=== PATIENT | female | born 1985 | race American Indian/Alaskan Native ===

== ENCOUNTER 2017-07-22 05:37 | Inpatient (IN) | payer OTHER ==
[2017-07-22] MEDS ORDERED: Oxytocin 30 UNITS in Sodium Chloride 0.9% 500 ML IV SCH (06:30)
[2017-07-22 06:40] VITALS: BMI 29.1
--- NOTE | 2017-07-22 06:55 | OBHP ---
Datetime: 07/22/2017 06:52 IP Adm Impression: Term, intrauterine ; Active labor IP Admit Plan: Admit to unit Admit Comment, IP Provider: The patient is at 38 weeks 6 days presents to labor and delivery c omplaining of spontaneous rupture membranes clear fluid patient reports good movement no vagina l bleeding and uterine contractions. Past medical history none Past surgical history none No known drug allergies Social history denies alcohol tobacco use care by Dr. Cox Intrauterine at 38 weeks 6 days Spontaneous rupture of membranes Admit, IV fluid hydration, routine labs Adequate pelvis vertex presentation estimated weight 7-1/2 pounds Pelvic Type - PN: Adequate Extremities - PN: Normal Abdomen - PN: Normal Back - PN: Normal Breast - PN: Not Done Lungs - PN: Normal Heart - PN: Normal Thyroid - PN: Normal Neurologic - PN: Normal HEENT - PN: Normal General - PN: Normal Weight - Estimated: 7 Presentation-Admit: Vertex FHR - Baseline A Provider: 145 Gestation - Est Wks by US: 38.0 Pool Provider: Positive EGA AdmitDate IP: 38.6 Vital Signs Provider: Reviewed IP Chief Complaint: Uterine contractions; Suspected ruptured membranes NICHD Variability Prov Fetus A: Moderate 6-25bpm NICHD Accel Fetus A IP Provider: 15X15 FHR Category Provider Fetus A: Category I Dilatation, Provider: 3 Effacement, Provider: 75 Station, Provider: -2 Genitourinary Exam: Normal DTRs - PN: Normal
[2017-07-22] MEDS: Lactated Ringer's 1,000 ML IV SCH ×4 (07:26→20:22)
[2017-07-22] MEDS ORDERED: Nalbuphine 20 mg/ml Inj (1 ml) IVP PRN (07:28)
[2017-07-22 07:46] LABS: BASO # 0.1 K/uL (0.0-0.2); BASO % 0.6 % (0.0-2.0); EOS # 0.2 K/uL (0.0-0.7); EOS % 1.7 % (0.0-4.0); LYMPH # 1.6 K/uL (1.0-4.3); LYMPH % 17.4 % (20.0-40.0); MEAN CELL VOLUME 86.7 fl (81.0-99.0); MEAN CORPUSCULAR HEMOGLOBIN 30.2 pg (27.0-31.0); MEAN CORPUSCULAR HGB CONC 34.9 g/dL (33.0-37.0); MEAN PLATELET VOLUME 8.9 fl (7.2-11.7); MONO # 0.7 K/uL (0.0-0.8); MONO % 7.7 % (0.0-10.0); NEUT # 6.8 K/uL (1.8-7.0); NEUT % 72.6 % (50.0-75.0); RED CELL DISTRIBUTION WIDTH 13.5 % (11.5-14.5); WHITE BLOOD COUNT 9.3 K/uL (4.8-10.8)
--- NOTE | 2017-07-22 09:41 | OBPN ---
Datetime: 07/22/2017 09:36 IP Progress Impression: Reassuring heart rate IP Procedures: Sterile Vag Exam IP Progress Plan: Augmentation FHR - Baseline A Provider: 120s IP Progress Note Comment: Patient with only occasional contraction. Plan for Pitocin augmentation. B oth maternal and well-being reassuring at this time. NICHD Accel Fetus A IP Provider: 15X15 FHR Category Provider Fetus A: Category I NICHD Variability Prov Fetus A: Moderate 6-25bpm Dilatation, Provider: 3-4 Effacement, Provider: 25 Station, Provider: -3 NICHD Decel Fetus A IP Provider: None Datetime: 07/22/2017 06:52 Pool Provider: Positive Gestation - Est Wks by US: 38.0 Weight - Estimated: 7 Presentation-Admit: Vertex Vital Signs Provider: Reviewed
[2017-07-22] MEDS ORDERED: Oxytocin 30 UNITS in Sodium Chloride 0.9% 500 ML IV ONE ×2 (09:56→10:15)
[2017-07-22] MEDS ORDERED: Lidocaine 2% PF (10 ml) Amp ONE (10:10)
[2017-07-22] MEDS ORDERED: Fentanyl/Bupivacaine HCl 250 ML EPI ONE (10:11)
[2017-07-22] MEDS ORDERED: ceFAZolin IV 2 gm in Dextrose 2 GM/50 ML BAG IVPB ONE ×2 (16:59→17:20)
[2017-07-22] MEDS ORDERED: Morphine 1 mg/ml preservative-free Inj(Duramorph) ONE (17:33)
[2017-07-22] MEDS ORDERED: Lidocaine 2% MPF (5 ml) Inj ONE (17:35)
[2017-07-22] MEDS ORDERED: Atropine 0.4 mg/ml Inj (1 mL) ONE (17:42)
[2017-07-22] MEDS ORDERED: Midazolam 2 MG/2 ML VIAL ONE (18:03)
[2017-07-22] MEDS ORDERED: DiphenhydrAMINE 50 mg/ml Inj IVP PRN (18:14)
[2017-07-22] MEDS ORDERED: Morphine 1 mg/ml preservative-free Inj(Duramorph) EPI ONE (18:14)
[2017-07-22] MEDS ORDERED: Naloxone 0.4 mg/ml Inj (Adult) IVP PRN (18:14)
[2017-07-23] MEDS: Lactated Ringer's 1,000 ML IV SCH (06:03)
[2017-07-23 06:12] LABS: BASO % 0.3 % (0.0-2.0); EOS # 0.1 K/uL (0.0-0.7); EOS % 0.7 % (0.0-4.0); HEMATOCRIT 29.9 % (34.0-47.0); LYMPH # 1.5 K/uL (1.0-4.3); LYMPH % 9.3 % (20.0-40.0); MEAN CELL VOLUME 87.7 fl (81.0-99.0); MEAN CORPUSCULAR HEMOGLOBIN 29.4 pg (27.0-31.0); MEAN CORPUSCULAR HGB CONC 33.5 g/dL (33.0-37.0); MEAN PLATELET VOLUME 8.6 fl (7.2-11.7); MONO # 0.8 K/uL (0.0-0.8); MONO % 5.2 % (0.0-10.0); NEUT # 13.7 K/uL (1.8-7.0); NEUT % 84.5 % (50.0-75.0); NRBC % 0.1 % (0.0-0.0); PLATELET COUNT 226 K/uL (130-400); RED CELL DISTRIBUTION WIDTH 13.5 % (11.5-14.5); WHITE BLOOD COUNT 16.2 K/uL (4.8-10.8)
--- NOTE | 2017-07-23 08:56 | OBDS ---
DELIVERY PERSONNEL Delivery Doctor: Cindy Sol MD Trial Paralegal: Kamilla Cooley RN Anesthesiologist: Alberta Boswell MD MATERNAL INFORMATION Delivery Anesthesia: Epidural Medications in Delivery: Pitocin 30u/500mL of NS Placenta Cultured: No Maternal Complications: None Provider Comments: Primary low flap transverse section via Pfannenstiel incision. Patient d elivered viable infant male with Apgars of 9 and 9 at one and 5 minutes respectively. Nuchal cord 2 reduced. Cord blood collected. Cord gases collected. Placenta delivered manually. Estimated blood loss 800 mL Fluids 1500 mL lactated Ringer's Urine output 200 mL of clear urine No complications. LABOR SUMMARY EDC: 07/30/2017 00:00 No. Babies in Womb: 1 Attempted: No Labor Anesthesia: Epidural LABOR INFORMATION Reason for Induction: Not Applicable Onset of Labor: 07/22/2017 02:00 Oxytocin: Augmentation Group B Beta Strep: Negative Antibiotics # of Doses: 1 Antibiotics Time of Last Dose: Ancef 2gm Steroids Given: None Reason Steroids Not Administered: Not Applicable MEMBRANES Membranes Rupture Method: Spontaneous Rupture of Membranes: 07/22/2017 02:00 Length of Rupture (hrs): 15.73 Amniotic Fluid Color: Clear Amniotic Fluid Amount: Small Amniotic Fluid Odor: Normal STAGES OF LABOR Stage 3 hrs: 0 Stage 3 min: 1 Total Time in Labor hrs: 15 Total Time in Labor min: 45 CSECTION DELIVERY Primary Indication: Secondary Arrest of Dilatation Secondary Indication: Nonreassuring Status CSection Urgency: Non Elective CSection Incidence: Primary Labor: Labor Elective: Nonelective CSection Incision: Classical BABY A INFORMATION Delivery Date/Time: 07/22/2017 17:44 Method of Delivery: Born in Route : No : N/A Forceps: N/A Vacuum Extraction: N/A Shoulder Dystocia : No SHOULDER DYSTOCIA BABY A Delivery Date/Time: 07/22/2017 17:44 PRESENTATION/POSITION BABY A Presentation: Cephalic Cephalic Presentation: Vertex Breech Presentation: N/A PLACENTA INFORMATION BABY A Placenta Delivery Time : 07/22/2017 17:45 Placenta Method of Delivery: Manual Removal Placenta Status: Delivered SCORES BABY A Heart Rate 1 min: >100 bpm Resp Effort 1 min: Good Cry Reflex Irritability 1 min: Cough or Sneeze or Pulls Away Muscle Tone 1 min: Active Motion Color 1 min: Body [place], Extremities Blue SCORE 1 MIN: 9 Heart Rate 5 min: >100 bpm Resp Effort 5 min: Good Cry Reflex Irritability 5 min: Cough or Sneeze or Pulls Away Muscle Tone 5 min: Active Motion Color 5 min: Body [place], Extremities Blue SCORE 5 MIN: 9 INFANT INFORMATION BABY A Gestational Age at Delivery: 38.6 Gestational Status: Term Outcome : Liveborn Infant Condition : Stable Infant Sex: Male WEIGHT/LENGTH BABY A Birthweight (gms): 3140 Weight (lb): 6 Weight (oz): 15 CORD INFORMATION BABY A No. Cord Vessels: 3 Nuchal Cord : N/A Cord Blood Taken: Yes Suction: Mouth
--- NOTE | 2017-07-23 08:59 | OBDS ---
DELIVERY PERSONNEL Delivery Doctor: Cindy Sol MD Human Relations Teacher: Kamilla Cooley RN Anesthesiologist: Alberta Boswell MD MATERNAL INFORMATION Delivery Anesthesia: Epidural Medications in Delivery: Pitocin 30u/500mL of NS Placenta Cultured: No Maternal Complications: None Provider Comments: Primary low flap transverse section via Pfannenstiel incision. Patient d elivered viable infant male with Apgars of 9 and 9 at one and 5 minutes respectively. Nuchal cord 2 reduced. Cord blood collected. Cord gases collected. Placenta delivered manually. Estimated blood loss 800 mL Fluids 1500 mL lactated Ringer's Urine output 200 mL of clear urine No complications. LABOR SUMMARY EDC: 07/30/2017 00:00 No. Babies in Womb: 1 Attempted: No Labor Anesthesia: Epidural LABOR INFORMATION Reason for Induction: Not Applicable Onset of Labor: 07/22/2017 02:00 Oxytocin: Augmentation Group B Beta Strep: Negative Antibiotics # of Doses: 1 Antibiotics Time of Last Dose: Ancef 2gm Steroids Given: None Reason Steroids Not Administered: Not Applicable MEMBRANES Membranes Rupture Method: Spontaneous Membranes Rupture Method: Spontaneous Membranes Rupture Method: Spontaneous Membranes Rupture Method: Spontaneous Membranes Rupture Method: Spontaneous Membranes Rupture Method: Spontaneous Membranes Rupture Method: Spontaneous Membranes Rupture Method: Spontaneous Membranes Rupture Method: Spontaneous Membranes Rupture Method: Spontaneous Membranes Rupture Method: Spontaneous Membranes Rupture Method: Spontaneous Membranes Rupture Method: Spontaneous Membranes Rupture Method: Spontaneous Membranes Rupture Method: Spontaneous Membranes Rupture Method: Spontaneous Membranes Rupture Method: Spontaneous Membranes Rupture Method: Spontaneous Membranes Rupture Method: Spontaneous Membranes Rupture Method: Spontaneous Membranes Rupture Method: Spontaneous Membranes Rupture Method: Spontaneous Membranes Rupture Method: Spontaneous Membranes Rupture Method: Spontaneous Membranes Rupture Method: Spontaneous Membranes Rupture Method: Spontaneous Rupture of Membranes: 07/22/2017 02:00 Length of Rupture (hrs): 15.73 Amniotic Fluid Color: Clear Amniotic Fluid Color: Clear Amniotic Fluid Amount: Small Amniotic Fluid Amount: Moderate Amniotic Fluid Odor: Normal Amniotic Fluid Odor: Normal STAGES OF LABOR Stage 3 hrs: 0 Stage 3 min: 1 Total Time in Labor hrs: 15 Total Time in Labor min: 45 CSECTION DELIVERY Primary Indication: Secondary Arrest of Dilatation Secondary Indication: Nonreassuring Status CSection Urgency: Non Elective CSection Incidence: Primary Labor: Labor Elective: Nonelective CSection Incision: Classical BABY A INFORMATION Delivery Date/Time: 07/22/2017 17:44 Method of Delivery: Born in Route : No : N/A Forceps: N/A Vacuum Extraction: N/A Shoulder Dystocia : No SHOULDER DYSTOCIA BABY A Delivery Date/Time: 07/22/2017 17:44 PRESENTATION/POSITION BABY A Presentation: Cephalic Cephalic Presentation: Vertex Breech Presentation: N/A PLACENTA INFORMATION BABY A Placenta Delivery Time : 07/22/2017 17:45 Placenta Method of Delivery: Manual Removal Placenta Status: Delivered SCORES BABY A Heart Rate 1 min: >100 bpm Resp Effort 1 min: Good Cry Reflex Irritability 1 min: Cough or Sneeze or Pulls Away Muscle Tone 1 min: Active Motion Color 1 min: Body [place], Extremities Blue SCORE 1 MIN: 9 Heart Rate 5 min: >100 bpm Resp Effort 5 min: Good Cry Reflex Irritability 5 min: Cough or Sneeze or Pulls Away Muscle Tone 5 min: Active Motion Color 5 min: Body [place], Extremities Blue SCORE 5 MIN: 9 INFANT INFORMATION BABY A Gestational Age at Delivery: 38.6 Gestational Status: Term Infant Outcome : Liveborn Condition : Stable Infant Sex: Male WEIGHT/LENGTH BABY A Birthweight (gms): 3140 Infant Weight (lb): 6 Weight (oz): 15 CORD INFORMATION BABY A No. Cord Vessels: 3 Nuchal Cord : N/A Cord Blood Taken: Yes Suction: Mouth
[2017-07-23 09:52] LABS: LARGE PLATELETS PRESENT; NEUTROPHIL 82 % (42-75); TOTAL CELLS COUNTED 100
--- NOTE | 2017-07-23 11:45 | OBPPN ---
Datetime: 07/23/2017 11:41 PP Pain Prov: Within normal limits PP Nausea Prov: Denies PP Flatus Prov: Yes PP BM Prov: No PP Breasts Prov: Normal PP Heart Prov: Normal PP Lungs Prov: Normal PP Abdomen/Uterus Prov: Normal PP Lochia Prov: Normal PP Vulva/Perineum Prov: Normal PP CVA Tenderness Prov: Normal PP Extremities Prov: Normal PP Comments Phys Exam Prov: Bandage removed Incision clean, dry, intact No deep Tenderness bilaterally PP Impression Prov: Normal progression PP Plan Prov: Continue present management PP Progress Note Prov: Postoperative #1 status post primary [id number] recovering well Postop CBC Pain control Advanced to regular diet as tolerated Lux out, void check Out of bed, ambulating IP PP Procedures: None Vital Signs Provider PP: Reviewed
[2017-07-23] MEDS ORDERED: Oxycodone/Acetaminophen 5/325 mg Tab PO ONE (11:54)
--- NOTE | 2017-07-23 12:05 | OP ---
PROCEDURE DATE: 07/22/2017 PREOPERATIVE DIAGNOSES: Arrest of dilatation in active labor, nonreassuring heart tracing. POSTOPERATIVE DIAGNOSES: Arrest of dilatation in active labor, nonreassuring heart tracing. OPERATION PERFORMED: Primary low-flap transverse section via Pfannenstiel incision. SURGEON: Todd Sol MD. ADVERTISING INTERNSHIP: Miguel Waggoner MD. Dr. Waggoner was present from the beginning of the procedure to the end of procedure. Dr. Waggoner was integral in exposing the surgical field, controlling intraoperative bleeding, and manual delivery of the infant. TYPE OF ANESTHESIA: Epidural. ANESTHESIA ADMINISTERED BY: Dr. Boswell. OPERATIVE FINDINGS: Viable male with Apgars of 9 and 9 at 1 and 5 minutes respectively, normal uterus, normal tubes and ovaries bilaterally. FLUIDS: 1500 mL lactated Ringer's. ESTIMATED BLOOD LOSS: 800 mL. URINE OUTPUT: 300 mL of clear urine at the end of procedure. COMPLICATIONS: None. DESCRIPTION OF PROCEDURE: The patient was taken to the operating room where epidural anesthesia was found to be adequate. The patient was prepped and draped in normal sterile fashion in the dorsal supine position with a leftward tilt. A Pfannenstiel skin incision was made with a scalpel. This was carried down through to the underlying layer of fascia with scalpel. Midline defect was made in the fascial layer with scalpel. The fascial incision was then extended bilaterally sharply with curved Khalil scissors. The fascial layer was from the rectus muscles both bluntly and sharply with curved Khalil scissors. The rectus muscles were at the midline. The peritoneum was then identified, tented up with Andra clamps x2, entered sharply with Metzenbaum scissors. This peritoneal incision was then extended superiorly and inferiorly with good visualization of the urinary bladder. Bladder blade was inserted into the abdomen. The vesicouterine peritoneum was then identified, tented up with Andra clamps x2, entered sharply with Metzenbaum scissors. This peritoneal incision was then extended bilaterally sharply with Metzenbaum scissors. The bladder flap was created digitally. The Kanchan retractors were placed over the urinary bladder. The uterus was incised with a scalpel. The uterine incision was extended bilaterally bluntly. The infant's head was delivered atraumatically. Nose and mouth were suctioned with bulb suction. The remainder of the infant was delivered without complication. The cord was clamped and cut. The was handed off to waiting pediatricians. Cord gases were collected. Cord blood was collected. The placenta was removed manually. The uterus was cleared of all clots and debris. The uterine incision was repaired with 0-Vicryl in a running, locked fashion. Second layer of the same suture was used to imbricate the first and to obtain excellent hemostasis. Reinspection of the uterine incision proved excellent hemostasis. The abdomen and pelvis were irrigated with copious amounts of warm normal saline. All instruments were removed from the patient. The peritoneal layer was closed with a running stitch of 2-0 chromic. The rectus muscles were reapproximated with a running stitch of 2-0 chromic. The fascial layer was closed with a running stitch of 0 Vicryl. Subcutaneous tissue was closed with a running stitch of 3-0 plain. The skin was closed with a subcutaneous stitch of 3-0 Vicryl. The patient tolerated the procedure well. All sponge, lap count, and needle counts were correct x2. There were no complications. The patient was given 2 g of Ancef just prior to the beginning of the procedure. The patient was taken to the recovery room in awake and stable condition. Todd Sol MD
[2017-07-23] MEDS: Oxycodone/Acetaminophen 5/325 mg Tab PO PRN ×2 (14:37→18:29)
[2017-07-23] MEDS: Simethicone 80 mg Chewtab PO SCH (18:30)
[2017-07-23] MEDS ORDERED: Chlorhexidine Gluconate 1 APPL/PKT TP ONE (21:21)
[2017-07-24] MEDS: Simethicone 80 mg Chewtab PO SCH ×2 (10:36→16:45)
--- NOTE | 2017-07-24 16:31 | OBPPN ---
Datetime: 07/24/2017 16:24 PP Pain Prov: Within normal limits PP Nausea Prov: Denies PP Flatus Prov: Yes PP BM Prov: No PP Breasts Prov: Normal PP Heart Prov: Normal PP Lungs Prov: Normal PP Abdomen/Uterus Prov: Normal PP Lochia Prov: Normal PP Vulva/Perineum Prov: Normal PP CVA Tenderness Prov: Normal PP Extremities Prov: Normal PP C/S Incision Prov: Normal PP Impression Prov: Normal progression PP Plan Prov: Continue present management PP Progress Note Prov: POD 2 H/H 07/11 A; S/P [id number] day 2/Anemia asymptomatic PLAN: cont postop care anticiapte discharge in AM Vital Signs Provider PP: Reviewed; Within Normal Limits
--- NOTE | 2017-07-25 07:41 | OBPPN ---
Datetime: 07/25/2017 07:39 PP Pain Prov: Within normal limits PP Nausea Prov: Denies PP Flatus Prov: Yes PP BM Prov: Yes PP Breasts Prov: Normal PP Heart Prov: Normal PP Lungs Prov: Normal PP Abdomen/Uterus Prov: Normal PP Lochia Prov: Normal PP Vulva/Perineum Prov: Normal PP CVA Tenderness Prov: Normal PP Extremities Prov: Normal PP C/S Incision Prov: Normal PP Impression Prov: Normal progression PP Plan Prov: Discharge PP Progress Note Prov: A; S/P C-sectoin day 3 PLAN: discharge home and follow up in 1-2w Vital Signs Provider PP: Within Normal Limits
--- NOTE | 2017-07-25 07:41 | OBDCSUM ---
Datetime: 07/25/2017 07:40 Discharged to, Provider: Home Follow up at, Provider: [facility] 1-2w Disch Instr Activity: Normal activity Disch Instr Diet: Regular Discharge Instructions, Provider: Routine instructions given Discharge Diagnosis, Provider: Term Delivered Follow up in weeks, Provider: 1-2w Disch Referrals: None Contraception discussed, Prov: Yes Disch Activity Restrictions: No lifting; No sexual activity; Nothing in vagina - [place], tampon s, douche
[2017-07-25] MEDS: Simethicone 80 mg Chewtab PO SCH (10:55)
[2017-07-25 17:54] VITALS: BP 122/83; PULSE 78; RESP 20; TEMP 98.3; O2SAT 99
== END 2017-07-25 13:30 | disposition home or self-care (01) | DRG 371 ==
LOC: H.EROB2 05:37 → H.L&D 06:23 → H.OB/GYN 21:45
PROVIDERS: ADMIT Obstetrics & Gynecology; ATTEND Obstetrics & Gynecology
PROC: 10D00Z1 Extraction of Products of Conception, Low, Open Approach (ICD-10-PCS; principal; 2017-07-22)
PROC: 4A1HXCZ Monitoring of Products of Conception, Cardiac Rate, External Approach (ICD-10-PCS; 2017-07-22)
DX: O62.1 Secondary uterine inertia (principal); O76 Abnormality in fetal heart rate and rhythm complicating labor and delivery; Z37.0 Single live birth; O69.81X0 Labor and delivery complicated by cord around neck, without compression, not applicable or unspecified; O62.0 Primary inadequate contractions; Z3A.38 38 weeks gestation of pregnancy

== ENCOUNTER 2017-08-11 08:21 | Emergency (ER) | payer OTHER ==
[2017-08-11 08:22] VITALS: BMI 29.1
[2017-08-11 08:40] VITALS: O2SAT 99
--- NOTE | 2017-08-11 09:58 | ED PDOC ---
HPI: General Adult Time Seen by Provider: 08/11/17 09:19 Chief Complaint (Nursing): Abnormal Skin Integrity Chief Complaint (Provider): Wound check History Per: Patient History/Exam Limitations: no limitations Additional History Per: Patient Additional Complaint(s): 32yo female, presents to ED today for a wound check. Patient states she had a c- section performed on 07/21/[address] Sol; states she had no complications in the early post-operation period. Patient states this morning, she noticed the right end of her wound was open and there was a pus like discharge with associated swelling. Patient denies any other abdominal pain, fever, vomiting, dysuria, vaginal bleeding. She denies any other medical complaints. Past Medical History Reviewed: Historical Data, Nursing Documentation, Vital Signs Vital Signs: Last Vital Signs Temp 97.6 F 08/11/17 08:33 Pulse 99 H 08/11/17 08:33 Resp 18 08/11/17 08:33 BP 138/88 08/11/17 08:33 Pulse Ox 99 08/11/17 10:01 - Medical History PMH: Bronchitis Denies: Depression, Diabetes, HTN, Chronic Kidney Disease - Surgical History Surgical History: - Family History Family History: States: No Known Family Hx - Living Arrangements Living Arrangements: With Family - Home Medications Home Medications: Ambulatory Orders Medication Instructions Recorded Ibuprofen [Motrin] 600 mg PO Q6H PRN #20 tab 07/25/17 Cephalexin [Keflex] 500 mg PO QID 7 Days capsule 08/11/17 - Allergies Allergies/Adverse Reactions: Allergies Allergy/AdvReac Type Severity Reaction Status Date / Time pineapple AdvReac SWELLING Verified 08/11/17 08:43 Review of Systems ROS Statement: Except As Marked, All Systems Reviewed And Found Negative Constitutional: Negative for: Fever, Chills Gastrointestinal: Positive for: Other (purulent discharge from right edge of c- section site). Negative for: Nausea, Vomiting Genitourinary Female: Negative for: Vaginal Bleeding Physical Exam - Reviewed Nursing Documentation Reviewed: Yes Vital Signs Reviewed: Yes - Physical Exam Appears: Positive for: Non-toxic, No Acute Distress Head Exam: Positive for: ATRAUMATIC, NORMAL INSPECTION, NORMOCEPHALIC Skin: Positive for: Normal Color Eye Exam: Positive for: Normal appearance Neck: Positive for: Supple Cardiovascular/Chest: Positive for: Regular Rate, Rhythm Respiratory: Positive for: Normal Breath Sounds. Negative for: Respiratory Distress Gastrointestinal/Abdominal: Positive for: Soft, Other (transverse wound noted, appears well healed but at the right end of wound, there is a 2cm araea of dehissence with purulent discharge. This area is tender to palpation as well.). Negative for: Tenderness Back: Positive for: Normal Inspection Extremity: Positive for: Normal ROM Neurologic/Psych: Positive for: Alert, Oriented - Laboratory Results Result Diagrams: 08/11/17 11:24 08/11/17 11:24 - ECG O2 Sat by Pulse Oximetry: 99 (RA) Pulse Ox Interpretation: Normal Medical Decision Making Medical Decision Making: Time: 924 Impression: Wound dehissence with superficial wound infection Plan: -- Patient states she called Dr. Sol this morning prior to arrival to the ED; call placed to Dr. Sol Time: [address] Sol who advised the patient to be started on Kefflex; he states he will see the patient in his office on 08/16. Patient informed of plan and is agreeable; stable for discharge home. Scribe Attestation: Documented by Karissa Novak acting as a scribe for Abhishek Castillo MD. Provider Attestation: All medical record entries made by the Scribe were at my direction and personally dictated by me. I have reviewed the chart and agree that the record accurately reflects my personal performance of the history, physical exam, medical decision making, and the department course for this patient. I have also personally directed, reviewed, and agree with the discharge instructions and disposition. Disposition - Clinical Impression Clinical Impression: Wound infection - Disposition Referrals: Todd Sol MD [Family Provider] - Disposition: Routine/Home Disposition Time: 12:11 Condition: GOOD Additional Instructions: Take your medications as instructed. Return for worsening pain. Follow up with Dr Sol on Wednesday. Prescriptions: Cephalexin [Keflex] 500 mg PO QID 7 Days capsule Instructions: Wound Infection (ED)
[2017-08-11 11:45] LABS: BASO # 0.1 K/uL (0.0-0.2); BASO % 0.9 % (0.0-2.0); EOS # 0.1 K/uL (0.0-0.7); EOS % 1.9 % (0.0-4.0); HEMATOCRIT 38.2 % (34.0-47.0); LYMPH # 1.3 K/uL (1.0-4.3); LYMPH % 17.9 % (20.0-40.0); MEAN CELL VOLUME 88.7 fl (81.0-99.0); MEAN CORPUSCULAR HEMOGLOBIN 29.3 pg (27.0-31.0); MEAN CORPUSCULAR HGB CONC 33.1 g/dL (33.0-37.0); MEAN PLATELET VOLUME 8.4 fl (7.2-11.7); MONO # 0.6 K/uL (0.0-0.8); MONO % 8.2 % (0.0-10.0); NEUT % 71.1 % (50.0-75.0); NRBC % 0.1 % (0.0-0.0); RED CELL DISTRIBUTION WIDTH 13.3 % (11.5-14.5); WHITE BLOOD COUNT 7.1 K/uL (4.8-10.8)
[2017-08-11 11:47] LABS: BLOOD UREA NITROGEN 6 mg/dl (7-17); CALCIUM 8.8 mg/dL (8.4-10.2); CARBON DIOXIDE 26 mmol/L (22-30); CHLORIDE 110 mmol/L (98-107); GFR AFRICAN-AMERICAN > 60; GLUCOSE,RANDOM 100 mg/dL (65-105); POTASSIUM 3.1 MMOL/L (3.6-5.0); SODIUM 143 mmol/l (132-148)
[2017-08-11] MEDS ORDERED: Potassium Chloride 20 mEq ER Tab PO ONE (12:01)
[2017-08-11 12:16] VITALS: BP 137/78; PULSE 84; RESP 19; TEMP 99.5
== END 2017-08-11 12:27 | disposition home or self-care (01) ==
LOC: H.ER 08:21
DX: B95.62 Methicillin resistant Staphylococcus aureus infection as the cause of diseases classified elsewhere (principal)